=== PATIENT | male | born 1990 | race Caucasian/White ===

== ENCOUNTER 2017-02-20 08:24 | Day surgery (SDC) | payer BC ==
[~2017-02-20] VITALS: Ht 185.4 cm; Wt 88.4 kg
[2017-02-20 09:29] VITALS: BP 123/73
[2017-02-20 15:00] VITALS: BP 131/67
[2017-02-20 17:20] VITALS: BP 124/74
[2017-02-20 18:08] VITALS: BP 124/67
[2017-02-21] MEDS ORDERED: ZOFRAN ODT4 MG PO (07:34)
== END 2017-02-20 18:13 | disposition home or self-care (01) ==
LOC: SDC 08:24
PROC: 0CTPXZZ Resection of Tonsils, External Approach (ICD-10-PCS; principal; 2017-02-20)
DX: J35.01 Chronic tonsillitis (principal)
CPT/HCPCS: 88304; J0131; J0171; J0330; J0561; J1100; J1170; J2250; J2405; J2710; J2765; J3010

== ENCOUNTER 2017-02-21 05:12 | Emergency (ER) | payer BC ==
[~2017-02-21] VITALS: Ht 185.4 cm; Wt 88.6 kg
[2017-02-21 05:55] LABS: HEMATOCRIT 42.9 % (38.0-50.0); MCH 29.2 PG (29.0-34.0); MCHC 34.5 G/DL (30.0-36.0); MCV 84.8 FL (86-99); MEAN PLAT.VOLUME 10.6 uM^3 (9.0-12.4); PLATELET COUNT 228 K/uL (156-360); RBC DIS.WIDTH-CV 12.3 % (11.8-14.6); RBC DIS.WIDTH-SD 37.6 % (39-53); RED BLOOD COUNT 5.06 M/uL (4.00-5.50); WHITE BLOOD COUNT 13.6 K/uL (4.1-10.2)
[2017-02-21 06:07] LABS: CHLORIDE 104 mEq/L (99-109); POTASSIUM 4.2 mEq/L (3.7-5.4); SODIUM 138 mEq/L (136-147)
[2017-02-21 06:08] LABS: GLUCOSE 122 mg/dL (70-99)
[2017-02-21 06:10] LABS: ANION GAP 10 MEQ/L (2-14)
[2017-02-21 06:12] LABS: GFR ESTIMATE (CALCULATED) > 59 mL/min/
[2017-02-21 06:13] LABS: UREA NITROGEN (BUN) 12 mg/dL (9-23)
[2017-02-21] MEDS ORDERED: ZOFRAN ODT4 MG PO (07:34)
[2017-02-21 07:55] VITALS: BP 97/50
== END 2017-02-21 08:12 | disposition home or self-care (01) ==
LOC: EME 05:12
PROVIDERS: Emergency Medicine
DX: R11.2 Nausea with vomiting, unspecified (principal)
CPT/HCPCS: 80048; 85027; 99281; 99285; J1885; J2405; J7030